=== PATIENT | female | born 1980 | race African-American/Black ===

== ENCOUNTER 2019-10-08 19:42 | Emergency (ER) | payer MEDICAID ==
[~2019-10-08] VITALS: Ht 167.6 cm; Wt 91.0 kg
[2019-10-08] MEDS ORDERED: ALBUTEROL (0.083%) 2.5MG/3ML NEB HHN STA (20:54)
[2019-10-08] MEDS ORDERED: IPRATROPIUM BROMIDE (0.02%) 0.5MG/2.5ML NEB HHN STA (20:54)
[2019-10-08] MEDS ORDERED: ONDANSETRON 4MG ODT PO STA (20:54)
[2019-10-08] MEDS ORDERED: METHYLPREDNISOLONE SOD SUCC 125 MG/2 ML VIAL IM NR (21:15)
[2019-10-08] MEDS ORDERED: GUAIFENESIN/CODEINE 200-20MG/10ML UDC PO ONE (21:30)
[2019-10-08] MEDS ORDERED: GUAIFENESIN/CODEINE 100-10MG/5ML UDC PO NR (21:30)
[2019-10-08] MEDS ORDERED: IPRATROPIUM/ALBUTEROL 0.5-3(2.5)MG/3ML NEB HHN ONE (22:00)
[2019-10-08] MEDS ORDERED: IPRATROPIUM BROMIDE (0.02%) 0.5MG/2.5ML NEB HHN ONE (23:00)
[2019-10-08] MEDS ORDERED: BUDESONIDE 0.5MG/2ML NEB HHN ONE (23:00)
[2019-10-08 23:18] VITALS: BP 119/79
== END 2019-10-08 23:19 | disposition home or self-care (01) ==
LOC: ER 19:42
DX: J20.9 Acute bronchitis, unspecified (principal); J11.1 Influenza due to unidentified influenza virus with other respiratory manifestations; M79.10 Myalgia, unspecified site; F12.10 Cannabis abuse, uncomplicated; Z98.890 Other specified postprocedural states
CPT/HCPCS: 71045; 93005; 94640; 96372; 99284; J2930; J7611; Q0162; Z7610